=== PATIENT | female | born 1980 | race Hispanic/Latino ===

== ENCOUNTER 2023-04-11 13:51 | Day surgery (SDC) | payer OTHER ==
[2023-04-11 14:38] VITALS: BMI 37.0
[2023-04-11] MEDS ORDERED: hydrALAZINE 20 MG/ML VIAL SLOW IVP PRN (14:42)
[2023-04-11 15:23] LABS: Fetal Membranes Rupture No Membranes Rupture (No Rupture)
== END 2023-04-11 16:50 | disposition home or self-care (01) ==
LOC: CSHLD/OP 13:51
PROVIDERS: ATTEND Family Medicine
DX: O47.03 False labor before 37 completed weeks of gestation, third trimester (principal); O09.523 Supervision of elderly multigravida, third trimester; Z03.71 Encounter for suspected problem with amniotic cavity and membrane ruled out; Z79.899 Other long term (current) drug therapy; Z3A.31 31 weeks gestation of pregnancy
CPT/HCPCS: 84112; 87480; 87510; 87660; 99283

== ENCOUNTER 2023-05-24 14:33 | Inpatient (IN) | payer MEDICAID, OTHER ==
[2023-05-23 13:53] LABS: Hematocrit 31.8 % (34.9-44.5); Hemoglobin 10.3 g/dL (12.0-15.5); Platelet Count 326 10x3/uL (150-450)
[2023-05-23 13:56] LABS: HBSAg Index 0.39 S/CO (0-0.99); Hep B Surf Ag Non-Reactive S/CO (NonReactive)
[2023-05-23 13:57] LABS: Syphilis Antibody Nonreactive (Nonreactive); Syphilis Antibody Index 0.05 S/CO (<1.00 Non-Reactive)
[2023-05-24] MEDS ORDERED: Misoprostol 200 MCG TAB PR PRN (15:14)
[2023-05-24] MEDS ORDERED: Bicitra 30 ML UDCUP PO PRN (15:14)
[2023-05-24] MEDS ORDERED: Promethazine HCl 25 MG/ML VIAL IM PRN ×3 (15:14→23:01)
[2023-05-24] MEDS ORDERED: CEFAZOLIN 2 GM in Sodium Chloride 0.9% 100 ML IVPB SCH (15:14)
[2023-05-24] MEDS ORDERED: Diphenoxylate HCl/Atropine Tablet PO PRN (15:14)
[2023-05-24] MEDS ORDERED: Oxytocin 30 units/NS 500 ML 500 ML IV SCH (15:14)
[2023-05-24] MEDS ORDERED: Carboprost 250 MCG/ML AMP IM PRN (15:14)
[2023-05-24] MEDS ORDERED: Famotidine/PF 20 mg/2ml Vial SLOW IVP PRN (15:14)
[2023-05-24] MEDS ORDERED: Methylergonovine 0.2 MG/ML VIAL IM PRN (15:14)
[2023-05-24] MEDS ORDERED: hydrALAZINE 20 MG/ML VIAL SLOW IVP PRN ×2 (15:14→23:01)
[2023-05-24] MEDS ORDERED: Ondansetron PF 4 MG/2 ML Vial IVP PRN ×4 (15:14→23:01)
[2023-05-24] MEDS ORDERED: Tranexamic Acid 1,000 MG/10 ML VIAL IVP PRN (15:14)
[2023-05-24] MEDS ORDERED: Lactated Ringer's 1,000 ML IV SCH (15:14)
[2023-05-24 15:25] VITALS: BMI 40.8
[2023-05-24] MEDS ORDERED: Misoprostol 200 MCG TAB ONE (16:12)
[2023-05-24] MEDS ORDERED: Methylergonovine 0.2 MG/ML VIAL ONE (16:12)
[2023-05-24] MEDS ORDERED: Tranexamic Acid 1,000 MG/10 ML VIAL ONE (16:12)
[2023-05-24] MEDS ORDERED: Carboprost 250 MCG/ML AMP ONE (16:12)
[2023-05-24] MEDS: Azithromycin 500 MG VIAL ONE ×2 (16:36→16:39)
[2023-05-24] MEDS ORDERED: PHENYLEPHRINE-NS 100 MCG/ML 10 ML SYRINGE ONE (17:36)
[2023-05-24] MEDS ORDERED: Ondansetron PF 4 MG/2 ML Vial ONE (17:36)
[2023-05-24] MEDS ORDERED: Morphine PF 10 MG/10 ML VIAL ONE (17:36)
[2023-05-24] MEDS ORDERED: Oxytocin 10 UNITS/ML VIAL ONE ×3 (17:36→18:30)
[2023-05-24] MEDS ORDERED: fentaNYL 50 mcg/mL 1 mL Vial ONE ×2 (18:03→20:05)
[2023-05-24] MEDS ORDERED: Promethazine HCl 25 MG/ML VIAL ONE (18:58)
[2023-05-24] MEDS ORDERED: HYDROmorphone 0.5 MG/0.5 ML SYRINGE SLOW IVP PRN (20:44)
[2023-05-24] MEDS ORDERED: Moisturizing Cream (Eucerin) 113 GM JAR TOP PRN (20:44)
[2023-05-24] MEDS ORDERED: Ketorolac Tromethamine 30 MG/ML VIAL IVP PRN (20:44)
[2023-05-24] MEDS ORDERED: Promethazine HCl 25 MG SUPP PR PRN (20:44)
[2023-05-24] MEDS ORDERED: Naloxone HCl 0.4 mg/ml Vial IV PRN (20:44)
[2023-05-24] MEDS ORDERED: fentaNYL 50 mcg/mL 1 mL Vial SLOW IVP PRN (20:44)
[2023-05-24] MEDS ORDERED: diphenhydrAMINE 50 MG/ML VIAL IVP PRN (20:44)
[2023-05-24] MEDS ORDERED: Meperidine HCl/PF 25 MG/ML VIAL SLOW IVP PRN (20:44)
[2023-05-24] MEDS ORDERED: Naloxone HCl 0.4 mg/ml Vial IVP PRN ×2 (20:44)
[2023-05-24] MEDS ORDERED: Communication Order-Pharmacy FS SCH ×2 (20:45→23:15)
[2023-05-24] MEDS ORDERED: Ketorolac Tromethamine 30 MG/ML VIAL IVP SCH (20:45)
[2023-05-24] MEDS ORDERED: cefTRIAXone\\ROCEPHIN 2 GM in Sodium Chloride 0.9% 100 ML IVPB SCH (21:00)
[2023-05-24] MEDS ORDERED: Bisacodyl 10 MG SUPP PR PRN (23:01)
[2023-05-24] MEDS ORDERED: Boostrix 0.5 ML (Tdap) VIAL (>/=7 yrs of age) IM ONE (23:01)
[2023-05-24] MEDS ORDERED: diphenhydrAMINE 25 MG CAP PO PRN (23:01)
[2023-05-24] MEDS ORDERED: Lanolin Ointment 7 GM TUBE TOP PRN (23:01)
[2023-05-24] MEDS ORDERED: Simethicone Chewable 80 MG TAB PO PRN (23:01)
[2023-05-25] MEDS: Hyoscyamine SL 0.125 MG TAB SL SCH ×2 (00:28→06:27)
[2023-05-25] MEDS: Ketorolac Tromethamine 30 MG/ML VIAL IVP SCH ×4 (02:52→14:47)
[2023-05-25 04:10] LABS: #Monocytes 0.6 10x3/uL (0.0-1.1); #Neutrophils 9.2 10x3/uL (1.5-8.4); %Basophils 0.3 % (0.0-2.0); %Eosinophils 0.2 % (0.0-6.0); %Lymphocytes 13.6 % (18.0-47.0); %Monocytes 5.5 % (0.0-10.0); %Neutrophils 80.1 % (40.0-75.0); Hematocrit 28.9 % (34.9-44.5); Hemoglobin 9.4 g/dL (12.0-15.5); Mean Corpuscular HGB CONC 32.5 g/dL (32.0-36.0); Mean Corpuscular Hemoglobin 27.8 pg (27.0-33.0); Mean Corpuscular Volume 85.5 fl (81.6-98.3); Mean Platelet Volume 9.8 fl (7.4-10.4); Platelet Count 291 10x3/uL (150-450); RBC Distribution Width 15.9 % (11.5-14.5); Red Blood Cell (RBC) Count 3.38 10x6/uL (3.90-5.03); White Blood Cell (WBC) Count 11.5 10x3/uL (3.5-10.5)
[2023-05-25 04:20] LABS: Anion Gap 13 mmol/L (10-20); BUN (Urea Nitrogen) 7 mg/dL (7.0-18.7); Calc. Creatinine Clearance 220 mL/min (70-130); Calcium 8.7 mg/dL (7.8-10.44); Carbon Dioxide 24 mmol/L (22-29); Chloride 104 mmol/L (98-107); Estimated GFR 120; Glucose 87 mg/dL (70-105); Potassium 3.6 mmol/L (3.5-5.1); Sodium 137 mmol/L (136-145)
[2023-05-25] MEDS: Ferrous Sulfate 325 MG TAB PO SCH ×2 (08:29→21:03)
[2023-05-25] MEDS: Prenatal Vitamin 1 TAB PO SCH (08:29)
[2023-05-25] MEDS: HYDROcodone/Acetaminophen 5/325 mg Tablet PO PRN ×4 (08:30→22:10)
[2023-05-25] MEDS: cefTRIAXone\\ROCEPHIN 2 GM in Sodium Chloride 0.9% 100 ML IVPB SCH (08:31)
[2023-05-25] MEDS: Docusate 100 MG CAP PO SCH ×2 (08:31→21:03)
[2023-05-25] MEDS ORDERED: HYDROcodone/Acetaminophen 5/325 mg Tablet PO PRN (08:45)
[2023-05-25] MEDS ORDERED: Oxybutynin ER 5 MG TAB PO SCH (13:30)
[2023-05-25] MEDS: Ibuprofen 800 MG TAB PO SCH (21:03)
[2023-05-26] MEDS: HYDROcodone/Acetaminophen 5/325 mg Tablet PO PRN ×4 (02:15→15:12)
[2023-05-26] MEDS: Ibuprofen 800 MG TAB PO SCH ×3 (06:32→22:31)
[2023-05-26] MEDS: Ferrous Sulfate 325 MG TAB PO SCH ×2 (09:02→22:35)
[2023-05-26] MEDS: Docusate 100 MG CAP PO SCH ×2 (09:02→22:32)
[2023-05-26] MEDS: Prenatal Vitamin 1 TAB PO SCH (09:02)
[2023-05-26] MEDS: cefTRIAXone\\ROCEPHIN 2 GM in Sodium Chloride 0.9% 100 ML IVPB SCH (09:02)
[2023-05-26] MEDS: Oxybutynin ER 5 MG TAB PO SCH (09:03)
[2023-05-26] MEDS ORDERED: HYDROcodone/Acetaminophen 7.5/325 mg Tablet PO PRN (18:44)
[2023-05-26] MEDS: HYDROcodone/Acetaminophen 7.5/325 mg Tablet PO PRN ×2 (18:57→22:34)
[2023-05-27] MEDS: HYDROcodone/Acetaminophen 7.5/325 mg Tablet PO PRN ×3 (03:03→15:15)
[2023-05-27] MEDS: Ferrous Sulfate 325 MG TAB PO SCH (09:05)
[2023-05-27] MEDS: Prenatal Vitamin 1 TAB PO SCH (09:05)
[2023-05-27] MEDS: Docusate 100 MG CAP PO SCH (09:05)
[2023-05-27] MEDS: Oxybutynin ER 5 MG TAB PO SCH (09:07)
[2023-05-27] MEDS: cefTRIAXone\\ROCEPHIN 2 GM in Sodium Chloride 0.9% 100 ML IVPB SCH (09:08)
[2023-05-27 11:44] VITALS: BP 114/56; TEMP 98.8
[2023-05-27] MEDS: Ibuprofen 800 MG TAB PO SCH ×2 (13:14→13:21)
== END 2023-05-27 17:55 | disposition home or self-care (01) | DRG 787 ==
LOC: CSHLD 14:33 → CSHPP 22:45
PROVIDERS: ADMIT Family Medicine; ATTEND Family Medicine
PROC: 10D00Z1 Extraction of Products of Conception, Low, Open Approach (ICD-10-PCS; principal; 2023-05-24)
PROC: 0TQB0ZZ Repair Bladder, Open Approach (ICD-10-PCS; 2023-05-24)
PROC: 0T9B70Z Drainage of Bladder with Drainage Device, Via Natural or Artificial Opening (ICD-10-PCS; 2023-05-24)
DX: O34.211 Maternal care for low transverse scar from previous cesarean delivery (principal); N99.71 Accidental puncture and laceration of a genitourinary system organ or structure during a genitourinary system procedure; O24.429 Gestational diabetes mellitus in childbirth, unspecified control; Z3A.39 39 weeks gestation of pregnancy; Z37.0 Single live birth
CPT/HCPCS: 51702; 80048; 82570; 85014; 85018; 85025; 85049; 86780; 86850; 86900; 86901; 87340; J0456; J0696; J1885; J2274; J2405; J2550; J2590; J3010; J3490; Q9968; S0028